=== PATIENT | female | born 1990 ===

== ENCOUNTER 2022-01-30 15:26 | Emergency (ER) | payer SELFPAY ==
[~2022-01-30] VITALS: Ht 182.9 cm; Wt 59.1 kg
[2022-01-30 15:43] VITALS: BP 129/78
--- NOTE | 2022-01-30 16:37 | NUR ---
pt c/o bilateral upper lateral flank pain, "everything makes it hurt", x4-5 days, no n/v, no dysuria, being evaluated by provider
--- NOTE | 2022-01-30 16:39 | NUR ---
pt is drinking water, aware UA needed
[2022-01-30] MEDS ORDERED: orphenadrine citrate 60mg/2ml inj. IM ONE (16:40)
[2022-01-30] MEDS ORDERED: ketorolac tromethamine 15mg/ml inj. IM ONE (16:40)
[2022-01-30 17:23] LABS: CLARITY,URINE SLIGHTLY CLOUDY (Clear); COLOR,URINE YELLOW (Yellow); GLUCOSE, URINE NEGATIVE (Neg); KETONES,URINE NEGATIVE (Neg); LEUKOCYTE ESTERASE ,URINE TRACE (Neg); NITRITES, URINE POSITIVE (Neg); OCCULT BLOOD,URINE LARGE (Neg); PROTEIN,URINE NEGATIVE (Neg); UROBILINOGEN,URINE 0.2 E.U/dL (0.2-1.0)
[2022-01-30 17:25] LABS: UA COLLECTION TYPE CLN CATCH MIDSTREAM
[2022-01-30] MEDS ORDERED: sulfamethoxazole/trimethoprim DS (800/160mg) tablet PO ONE (17:35)
[2022-01-30] MEDS ORDERED: IBUP-1984 PO (17:36)
[2022-01-30] MEDS ORDERED: SULF1TAB45 PO (17:36)
[2022-01-30 17:40] LABS: WBC,URINE 30-50 /HPF (0-4)
[2022-01-30 17:49] LABS: BACTERIA,URINE 4+ /HPF (Neg)
--- NOTE | 2022-01-30 17:49 | NUR ---
pt dc'd home
[2022-01-30 17:54] LABS: SQUAMOUS EPITHELIAL CELL,UR MODERATE /LPF (FEW)
== END 2022-01-30 17:47 | disposition home or self-care (01) ==
LOC: ER 15:26
DX: N10 Acute pyelonephritis (principal); Z79.2 Long term (current) use of antibiotics; Z79.899 Other long term (current) drug therapy
CPT/HCPCS: 81001; 87077; 87088; 87186; 96372; 99284; J1885; J2360

== ENCOUNTER 2022-09-16 17:00 | Emergency (ER) | payer SELFPAY ==
[~2022-09-16] VITALS: Ht 182.9 cm; Wt 59.1 kg
[2022-09-16 17:51] LABS: BASOPHILS % (AUTO) 0.5 % (0-1); EOSINOPHILS % (AUTO) 0.1 % (0-6); HEMATOCRIT 43.2 % (35.0-45.0); HEMOGLOBIN 14.9 g/dl (12.0-16.0); LYMPHOCYTES # (AUTO) 0.8 X10'3 (1.1-4.8); LYMPHOCYTES % (AUTO) 8.2 % (21-51); MEAN CORPUSCULAR HEMOGLOBIN 34.8 PG (27.0-31.0); MEAN CORPUSCULAR HGB CONC 34.5 g/dL (33.0-36.5); MEAN CORPUSCULAR VOLUME 100.9 FL (78-98); MONOCYTES # (AUTO) 0.7 X10'3 (0-0.9); MONOCYTES % (AUTO) 7.5 % (2-12); NEUTROPHILS # (AUTO) 8.1 X10'3 (1.8-7.7); NEUTROPHILS % (AUTO) 83.7 % (42-75); PLATELET COUNT 146 X10'3 (140-440); RED BLOOD COUNT 4.28 X10'6 (4.20-5.60); RED CELL DISTRIBUTION WIDTH 12.9 % (11.5-14.5); WHITE BLOOD COUNT 9.6 X10'3 (4.5-11.0)
[2022-09-16 18:01] LABS: ALANINE AMINOTRANSFERASE 13 U/L (12-78); ALBUMIN 3.8 G/DL (3.4-5.0); ALKALINE PHOSPHATASE 54 IU/L (46-116); ANION GAP 11 (8-16); ASPARTATE AMINO TRANSFERASE 11 U/L (10-37); BILIRUBIN,TOTAL 0.9 MG/DL (0.1-1.0); BLOOD UREA NITROGEN 24 MG/DL (7-18); BUN/CREATININE RATIO 21.8 (10.0-20.0); CALCIUM 9.6 MG/DL (8.5-10.1); CHLORIDE 102 MMOL/L (99-107); GLUCOSE 102 MG/DL (70-104); POTASSIUM 3.9 MMOL/L (3.5-5.1); SODIUM 137 MMOL/L (135-145); TOTAL CARBON DIOXIDE 24.2 MMOL/L (24-32); TOTAL PROTEIN 7.7 G/DL (6.4-8.2); eGFR 58 ML/MIN
[2022-09-16 18:31] LABS: URINE HCG NEGATIVE (NEG)
[2022-09-16 18:45] LABS: CLARITY,URINE CLOUDY (Clear); COLOR,URINE YELLOW (Yellow); GLUCOSE, URINE NEGATIVE (Neg); KETONES,URINE 15 mg/dl (Neg); LEUKOCYTE ESTERASE ,URINE MODERATE (Neg); NITRITES, URINE NEGATIVE (Neg); OCCULT BLOOD,URINE MODERATE (Neg); PROTEIN,URINE 30 mg/dl (Neg)
[2022-09-16 18:58] LABS: UA COLLECTION TYPE CLN CATCH MIDSTREAM
[2022-09-16 18:59] LABS: BACTERIA,URINE 4+ /HPF (Neg); SQUAMOUS EPITHELIAL CELL,UR FEW /LPF (FEW); WBC,URINE TNTC /HPF (0-4)
[2022-09-16 19:00] LABS: MUCUS STRANDS NONE SEEN /LPF (Neg); TRANSITIONAL EPI CELLS,URINE FEW /HPF
[2022-09-16] MEDS ORDERED: normal saline 1000ml 1,000 ML IV ONE (21:00)
[2022-09-16] MEDS ORDERED: morphine 4 MG/ML inj SYRINge IV ONE (21:00)
[2022-09-16] MEDS ORDERED: ondansetron/PF 4mg/2ml inj IV ONE (21:00)
[2022-09-16] MEDS ORDERED: CefTRIAXone/D5W-Rocephin 1gm 50 ML IV STA (21:08)
[2022-09-16] MEDS ORDERED: sulfamethoxazole/trimethoprim DS (800/160mg) tablet PO ONE (21:15)
[2022-09-16] MEDS ORDERED: ketorolac tromethamine 15mg/ml inj. IM ONE (21:15)
[2022-09-16] MEDS ORDERED: IBUP-1984 PO (21:17)
[2022-09-16] MEDS ORDERED: SULF1TAB49 PO (21:17)
[2022-09-16 21:27] VITALS: BP 112/71
== END 2022-09-16 21:28 | disposition home or self-care (01) ==
LOC: ER 17:01
DX: N10 Acute pyelonephritis (principal); Z79.899 Other long term (current) drug therapy
CPT/HCPCS: 36415; 80053; 81001; 81025; 85025; 87088; 96372; 99283; J1885; 87077; 87186